=== PATIENT | female | born 1980 | race Caucasian/White ===

== ENCOUNTER 2019-09-21 12:59 | Emergency (ER) | payer SELFPAY ==
[~2019-09-21] VITALS: Ht 162.6 cm; Wt 80.3 kg
[2019-09-21 12:59] VITALS: BP 129/68
[2019-09-21 13:31] VITALS: BP 129/68
== END 2019-09-21 13:31 | disposition home or self-care (01) ==
LOC: MED 12:59
DX: R09.89 Other specified symptoms and signs involving the circulatory and respiratory systems (principal); R50.9 Fever, unspecified; R05 Cough
CPT/HCPCS: 99283